=== PATIENT | female | born 1955 | race Caucasian/White ===

== ENCOUNTER → 2017-01-30 | Outpatient (REF) | payer BC | LOC: M LAB REF 13:32 | PROVIDERS: ATTEND Internal Medicine | DX: D51.9 Vitamin B12 deficiency anemia, unspecified (principal) ==

== ENCOUNTER → 2017-11-04 | Outpatient (CLI) | payer BC ==
[~2017-11-04] MED LIST: PROHANCE 279.3MG/ML 15ML VIAL (A9576) As Ordered
== END ==
LOC: M RAD 14:27
DX: H93.13 Tinnitus, bilateral (principal)
CPT/HCPCS: A9576

== ENCOUNTER 2018-01-20 22:49 | Inpatient (IN) | payer BC ==
[2018-01-20] MEDS: ONDANSETRON 4MG/2ML VIAL (J2405) IV (23:57)
[2018-01-20] MEDS: NS 1,000 ML IV (23:57)
[2018-01-20] MEDS: MORPHINE 4 MG/ML 1ML VIAL/SYRINGE (J2270) IV (23:58)
[2018-01-21] MEDS ORDERED: ISOVUE-370 76% 100ML VIAL (Q9967) As Ordered (00:02)
[2018-01-21 00:35] LABS: ALBUMIN 3.8 GM/DL (3.2-5.2); ALBUMIN/GLOBULIN RATIO 1.03 (1.00-1.93); ALKALINE PHOSPHATASE 80 U/L (45-117); ALT/SGPT 55 U/L (12-78); ANION GAP 8 MEQ/L (8-16); AST/SGOT 26 U/L (7-37); BILIRUBIN,DIRECT 0.2 MG/DL (0.0-0.2); BILIRUBIN,TOTAL 0.6 MG/DL (0.2-1.0); BLOOD UREA NITROGEN 12 MG/DL (7-18); CALCIUM LEVEL 8.5 MG/DL (8.8-10.2); CARBON DIOXIDE LEVEL 26 MEQ/L (21-32); CHLORIDE LEVEL 106 MEQ/L (98-107); CREATININE FOR GFR 0.77 MG/DL (0.55-1.30); GLOMERULAR FILTRATION RATE > 60.0 (>45); GLUCOSE, FASTING 159 MG/DL (70-100); LIPASE 73 U/L (73-393); POTASSIUM SERUM 3.4 MEQ/L (3.5-5.1); SODIUM LEVEL 140 MEQ/L (136-145); TOTAL PROTEIN 7.5 GM/DL (6.4-8.2)
[2018-01-21 00:35] LABS: LACTIC ACID SEPSIS PROTOCOL 1.4 MMOL/L (0.4-2.0)
[2018-01-21 00:36] LABS: BASO % 0.3 % (0.0-1.0); EOS % 0.4 % (0.0-3.0); HEMATOCRIT 42.4 % (36.0-47.0); HEMOGLOBIN 14.4 g/dl (12.0-15.5); IMMATURE GRANULOCYTE % 0.3 % (0-3.0); LYMPH # 1.2 10^3/uL (1.5-4.5); LYMPH % 13.7 % (24.0-44.0); MEAN CORPUSCULAR HEMOGLOBIN 30.2 pg (27.0-33.0); MEAN CORPUSCULAR VOLUME 88.9 fl (80.0-96.0); MONO # 0.8 10^3/uL (0.0-0.8); NEUTROPHILS # 6.8 10^3/uL (1.8-7.7); NEUTROPHILS % 76.3 % (36.0-66.0); PLATELET COUNT, AUTOMATED 176 10^3/uL (150-450); RED BLOOD COUNT 4.77 10^6/uL (4.00-5.40); RED CELL DISTRIBUTION WIDTH 12.8 % (11.5-14.5)
[2018-01-21] MEDS: MORPHINE 4 MG/ML 1ML VIAL/SYRINGE (J2270) IV (00:41)
[2018-01-21 00:42] LABS: AMORPHOUS SEDIMENT RFX LARGE (NEGATIVE); KETONE, URINE AUTO RFX NEGATIVE (NEGATIVE); LEUKOCYTE ESTERASE UR AUTO RFX NEGATIVE (NEGATIVE); MUCUS, URINE RFX LARGE (NEGATIVE); NITRITE, URINE AUTO RFX NEGATIVE (NEGATIVE); RBC, URINE AUTO RFX 4 /HPF (0-3); SQUAM EPITHELIAL CELL UR AURFX 2 /HPF (0-6); WBC, URINE AUTO RFX 4 /HPF (0-3)
[2018-01-21] MEDS: NS 1,000 ML IV (03:45)
[2018-01-21] MEDS: KCL 10MEQ/100ML SWI (KRUN) 10 MEQ in APPROPRIATE DILUENT 1 EA IV ×3 (05:00→06:00)
[2018-01-21] MEDS: ONDANSETRON 4MG/2ML VIAL (J2405) IV (05:50)
[2018-01-21] MEDS: KETOROLAC 30 MG/ML VIAL (J1885) IV ×2 (05:51→12:39)
[2018-01-21] MEDS: PYRIDOXINE 50 MG TAB PO (09:00)
[2018-01-21] MEDS: PANTOPRAZOLE 40MG INJ (PROTONIX) (C9113) IV (09:47)
[2018-01-21] MEDS: ENOXAPARIN 40 MG/0.4 ML SYRINGE (J1650) SC (09:49)
[2018-01-21] MEDS: POTASSIUM CHLORIDE INJ 10 MEQ in NS 1,000 ML IV ×2 (12:42→22:32)
[2018-01-21] MEDS: amLODIPine 5 MG TAB PO (21:51)
[2018-01-22 05:54] LABS: HEMATOCRIT 34.7 % (36.0-47.0); MEAN CORPUSCULAR HEMOGLOBIN 30.7 pg (27.0-33.0); MEAN CORPUSCULAR HGB CONC 34.6 g/dl (32.0-36.5); MEAN CORPUSCULAR VOLUME 88.7 fl (80.0-96.0); PLATELET COUNT, AUTOMATED 152 10^3/uL (150-450); RED BLOOD COUNT 3.91 10^6/uL (4.00-5.40); RED CELL DISTRIBUTION WIDTH 13.2 % (11.5-14.5); WHITE BLOOD COUNT 3.7 10^3/uL (4.0-10.0)
[2018-01-22 06:11] LABS: ANION GAP 7 MEQ/L (8-16); BLOOD UREA NITROGEN 7 MG/DL (7-18); CALCIUM LEVEL 7.6 MG/DL (8.8-10.2); CARBON DIOXIDE LEVEL 24 MEQ/L (21-32); CHLORIDE LEVEL 115 MEQ/L (98-107); CREATININE FOR GFR 0.57 MG/DL (0.55-1.30); GLOMERULAR FILTRATION RATE > 60.0 (>45); GLUCOSE, FASTING 105 MG/DL (70-100); POTASSIUM SERUM 3.6 MEQ/L (3.5-5.1); SODIUM LEVEL 146 MEQ/L (136-145)
[2018-01-22] MEDS: POTASSIUM CHLORIDE INJ 10 MEQ in NS 1,000 ML IV (08:15)
[2018-01-22] MEDS: PYRIDOXINE 50 MG TAB PO (08:16)
[2018-01-22] MEDS: ENOXAPARIN 40 MG/0.4 ML SYRINGE (J1650) SC (08:16)
[2018-01-22] MEDS: PANTOPRAZOLE 40MG INJ (PROTONIX) (C9113) IV (08:16)
[2018-01-22] MEDS: KETOROLAC 30 MG/ML VIAL (J1885) IV ×2 (08:30→18:24)
[2018-01-22] MEDS: amLODIPine 5 MG TAB PO (21:17)
[2018-01-23 06:16] LABS: HEMATOCRIT 37.2 % (36.0-47.0); HEMOGLOBIN 12.7 g/dl (12.0-15.5); MEAN CORPUSCULAR HEMOGLOBIN 30.1 pg (27.0-33.0); MEAN CORPUSCULAR HGB CONC 34.1 g/dl (32.0-36.5); MEAN CORPUSCULAR VOLUME 88.2 fl (80.0-96.0); PLATELET COUNT, AUTOMATED 186 10^3/uL (150-450); RED BLOOD COUNT 4.22 10^6/uL (4.00-5.40); RED CELL DISTRIBUTION WIDTH 12.8 % (11.5-14.5); WHITE BLOOD COUNT 6.7 10^3/uL (4.0-10.0)
[2018-01-23 06:39] LABS: ANION GAP 8 MEQ/L (8-16); BLOOD UREA NITROGEN 6 MG/DL (7-18); CALCIUM LEVEL 8.6 MG/DL (8.8-10.2); CARBON DIOXIDE LEVEL 27 MEQ/L (21-32); CHLORIDE LEVEL 107 MEQ/L (98-107); CREATININE FOR GFR 0.62 MG/DL (0.55-1.30); GLOMERULAR FILTRATION RATE > 60.0 (>45); GLUCOSE, FASTING 110 MG/DL (70-100); POTASSIUM SERUM 3.2 MEQ/L (3.5-5.1); SODIUM LEVEL 142 MEQ/L (136-145)
[2018-01-23] MEDS: ENOXAPARIN 40 MG/0.4 ML SYRINGE (J1650) SC (07:55)
[2018-01-23] MEDS: POTASSIUM CHLORIDE 10 MEQ SR TABLET PO (07:57)
[2018-01-23] MEDS: PYRIDOXINE 50 MG TAB PO (07:57)
== END 2018-01-23 13:06 | disposition home or self-care (01) | DRG 247 ==
LOC: M ED 22:49 → M ED INP 01-21 04:19 → M MSPAV 01-21 05:32
DX: K56.600 Partial intestinal obstruction, unspecified as to cause (principal); G95.0 Syringomyelia and syringobulbia; E53.1 Pyridoxine deficiency; E87.6 Hypokalemia; I10 Essential (primary) hypertension; Z88.8 Allergy status to other drugs, medicaments and biological substances; Z90.49 Acquired absence of other specified parts of digestive tract; Z98.41 Cataract extraction status, right eye; Z98.42 Cataract extraction status, left eye

== ENCOUNTER → 2018-01-27 | Outpatient (REF) | payer BC ==
[2018-01-27 18:03] LABS: VITAMIN B12 LEVEL 793 PG/ML (247-911)
== END ==
LOC: M LAB REF 16:47
DX: D51.9 Vitamin B12 deficiency anemia, unspecified (principal)
CPT/HCPCS: 82607

== ENCOUNTER 2018-06-06 07:37 | Emergency (ER) | payer BC ==
[2018-06-06] MEDS: NORCO, ANEXSIA 5/325MG TABLET (HYDROcodone/ACETAMINOPHEN) PO (08:22)
== END 2018-06-06 09:12 | disposition home or self-care (01) ==
LOC: M ED 07:37
DX: S89.91XA Unspecified injury of right lower leg, initial encounter (principal); W00.0XXA Fall on same level due to ice and snow, initial encounter; Y92.410 Unspecified street and highway as the place of occurrence of the external cause; M25.461 Effusion, right knee; I10 Essential (primary) hypertension; Z88.8 Allergy status to other drugs, medicaments and biological substances
CPT/HCPCS: 73564

== ENCOUNTER 2019-10-01 12:21 | Emergency (ER) | payer BC ==
[~2019-10-01] VITALS: Ht 152.4 cm; Wt 75.1 kg
[~2019-10-01 12:21] MED LIST changes: +AMLO5TAB6; +AMLO5TAB6 PO; +CIPR-249 PO; +DICL1GEL3; +FISH7.5C PO; +FLAG500T PO; +PERC5TAB12 PO; -PROHANCE 279.3MG/ML 15ML VIAL (A9576) As Ordered; +PYRI50TA8 PO; +VITA50005; +ZOFR4TAB14 PO
[2019-10-01] MEDS ORDERED: ACET-683 PO (12:28)
[2019-10-01] MEDS ORDERED: KETOROLAC TROMETHAMINE 10 MG TAB PO ONE (13:30)
--- NOTE | 2019-10-01 13:45 | REP ---
CT BRAIN WITHOUT CONTRAST: CT brain performed without IV contrast. Ventricles are normal in size and position with no midline shift or mass effect. Garcia-white differentiation is well maintained. There is no acute hemorrhage. There is no extra-axial fluid collection. There is no skull fracture. IMPRESSION: Negative noncontrast CT brain. Electronically Signed by Omar Garcia MD 10/01/2019 02:29 P
[2019-10-01] MEDS ORDERED: KETO10TAB PO (14:56)
[2019-10-01 15:02] VITALS: BP 145/90
--- NOTE | 2019-10-01 15:03 | REP ---
RIGHT ELBOW, FOUR VIEWS: There is no evidence of an acute fracture, dislocation or intrinsic bone disease. IMPRESSION: No fracture or dislocation. Electronically Signed by Omar Garcia MD 10/01/2019 05:33 P
== END 2019-10-01 15:11 | disposition home or self-care (01) ==
LOC: M ED 12:21
DX: F07.81 Postconcussional syndrome (principal); S50.01XA Contusion of right elbow, initial encounter; W22.8XXA Striking against or struck by other objects, initial encounter; Y92.018 Other place in single-family (private) house as the place of occurrence of the external cause; I10 Essential (primary) hypertension; Z88.8 Allergy status to other drugs, medicaments and biological substances

== ENCOUNTER → 2023-01-01 | Outpatient (CLI) | payer BC, MEDICARE ==
[~2023-01-01] MED LIST changes: +ACET-683 PO; +AMLO1TAB24; +AMLO1TAB24 PO; -AMLO5TAB6; -AMLO5TAB6 PO; +FISH10005 PO; -FISH7.5C PO; +KETO10TAB PO
== END ==
LOC: M WUC 15:41
PROVIDERS: ATTEND Internal Medicine
DX: R05.3 Chronic cough (principal)

== ENCOUNTER → 2023-01-26 | Outpatient (CLI) | payer BC, MEDICARE ==
[~2023-01-26] MED LIST changes: +DICL100G10; -DICL1GEL3; +METHACHOLINE KIT INH ONE
== END ==
LOC: M CARPUL 09:30
PROVIDERS: ATTEND Internal Medicine
DX: R05.3 Chronic cough (principal)
CPT/HCPCS: 94070; 95070; J7674

== ENCOUNTER → 2023-02-03 | Outpatient (CLI) | payer MEDICARE ==
[~2023-02-03] MED LIST changes: +ISOVUE-370 76% 100ML VIAL As Ordered ONE; -METHACHOLINE KIT INH ONE
== END ==
LOC: M RAD 15:01
PROVIDERS: ATTEND Internal Medicine
DX: R05.3 Chronic cough (principal); R91.1 Solitary pulmonary nodule
CPT/HCPCS: 71260; Q9967